=== PATIENT | female | born 1990 | race Caucasian/White ===

== ENCOUNTER 2019-03-19 14:39 | Emergency (ER) | payer OTHER ==
[~2019-03-19] VITALS: Ht 167.6 cm; Wt 70.5 kg
[~2019-03-19 14:39] MED LIST: ACET-141 PO; CEPH500C PO; CIPR500T4 PO; FAMO20TA18 PO; HYDR-4011 PO; IBUP800T48 PO; ONDA4TAB14 PO
[2019-03-19] MEDS ORDERED: CEFTRIAXONE 1 GM/50 ML (PMX) 50 ML IVPB STA (14:56)
[2019-03-19] MEDS ORDERED: SODIUM CHLORIDE 0.9% 1L BAG IV* STA (14:56)
[2019-03-19] MEDS ORDERED: KETOROLAC 30 MG INJ IV STA (14:56)
[2019-03-19] MEDS ORDERED: ACETAMINOPHEN 325 MG TAB PO STA (14:56)
[2019-03-19 15:25] VITALS: Ht 167.6 cm; Wt 70.5 kg
[2019-03-19 18:06] VITALS: BP 103/68; PULSE 100; RESP 17
== END 2019-03-19 18:09 | disposition home or self-care (01) ==
LOC: E/R 14:39
DX: N12 Tubulo-interstitial nephritis, not specified as acute or chronic (principal); R40.2142 Coma scale, eyes open, spontaneous, at arrival to emergency department; R40.2252 Coma scale, best verbal response, oriented, at arrival to emergency department; R40.2362 Coma scale, best motor response, obeys commands, at arrival to emergency department; R10.9 Unspecified abdominal pain
CPT/HCPCS: 80053; 81001; 81025; 83605; 85025; 87040; 87086; 93005; 96365; 96375; J0696; J1885; J7030; Z7502; Z7610